=== PATIENT | female | born 1985 | race Caucasian/White ===

== ENCOUNTER → 2018-01-07 | Outpatient (CLI) | payer BC ==
--- NOTE | 2018-01-07 15:54 | Diagnostic Imaging Report ---
INDICATION: survey. TECHNIQUE: Multiple real-time grayscale images were obtained over the gravid uterus. COMPARISON: None. FINDINGS: There is a single live fetus in transverse presentation. Placenta is anterior. Amniotic fluid volume appears normal. heart rate was recorded at 146 beats per minute. Anterior placenta is somewhat low lying approximately 2 cm from the internal cervical os. survey is unremarkable demonstrating kidneys, bladder and stomach to be unremarkable. brain is unremarkable. There is a four-chamber heart. There is a three-vessel cord with normal insertion. spine is limited in evaluation due to lie. Biometrical measurements are as follows: Biparietal 4.93 cm, age 21 weeks 0 days. Head circumference 17.61 cm, age 20 weeks 1 days. Abdominal circumference 16.08 cm, age 21 weeks 2 days. Femur length 3.31 cm, age 20 weeks 3 days. Sonographic estimate age: 20 weeks 5 days. Sonographic estimated date of delivery: 05/22/18. Estimated Weight: 374 gm (+/- 55 gm). LMP percentile: 46%. heart rate: 146 beats per minute. number: 1 of 1. IMPRESSION: Single live IUP approximately 20 weeks 5 days gestational age. The estimated date of confinement sonographically is 05/22/2018. survey is unremarkable apart from spine that was limited in evaluation due to position. Followup could be performed. Dictated by: Dictated on workstation # [id number]
== END ==
LOC: RAD 14:34
PROVIDERS: ATTEND Obstetrics & Gynecology
DX: Z36.89 Encounter for other specified antenatal screening (principal); Z3A.20 20 weeks gestation of pregnancy
CPT/HCPCS: 76805

== ENCOUNTER 2018-05-13 21:36 | Inpatient (IN) | payer BC ==
[~2018-05-13] VITALS: Ht 160 cm; Wt 99.6 kg
[2018-05-13] MEDS ORDERED: D5 LR IV SOLUTION 1,000 ML IV ONE (22:00)
[2018-05-13] MEDS ORDERED: D5 LR IV SOLUTION 1,000 ML IV SCH (22:30)
[2018-05-13 22:38] LABS: BASOPHILS % (AUTO) 0 % (0-10); EOSINOPHILS # (AUTO) 0.1 10^3/uL (0.0-0.3); EOSINOPHILS % (AUTO) 1 % (0-10); HEMATOCRIT 33 % (35-52); HEMOGLOBIN 11.5 G/DL (11.5-16.0); LYMPHOCYTES # (AUTO) 2.7 X 10^3 (1.0-4.0); LYMPHOCYTES % (AUTO) 17 % (12-44); MEAN CORPUSCULAR HEMOGLOBIN 32 PG (25-34); MEAN CORPUSCULAR HGB CONC 35 G/DL (32-36); MEAN CORPUSCULAR VOLUME 90 FL (80-99); MONOCYTES # (AUTO) 1.3 X 10^3 (0.0-1.0); MONOCYTES % (AUTO) 8 % (0-12); NEUTROPHILS # (AUTO) 12.3 X 10^3 (1.8-7.8); NEUTROPHILS % (AUTO) 75 % (42-75); PLATELET COUNT 356 10^3/uL (130-400); RED BLOOD COUNT 3.63 10^6/uL (4.35-5.85); RED CELL DISTRIBUTION WIDTH 15.1 % (10.0-14.5); WHITE BLOOD COUNT 16.4 10^3/uL (4.3-11.0)
[2018-05-13] MEDS ORDERED: ONDANSETRON 4 MG/2 ML (SDV) Z0FRAN IVP PRN (23:15)
--- NOTE | 2018-05-13 23:40 | OB Labor & Delivery Record ---
L&D History Date of Service Date of Service: May 13, 2018 History Expected Date of Delivery: May 22, 2018 Gestational Age in Weeks: 38 Hx : 6 Hx Para: 3 Complications Events: Routine care Operative Indications (Cesarea: N/A-Vaginal Delivery Intrapartal Events: None L&D Stage1 Stage One Onset of Labor - Date: May 13, 2018 Monitors and Tracing Monitor Mode: External Heart Rate: 135 Monitor Accelerations: Uniform Monitor Decelerations: None Station: -2 Benefits Representative Variability: Average (6-10) Short Term Variability: Present Presentation: Vertex Rupture of Membranes Spontaneous Ruture of Membrane: No Amniotic Membrane Rupture Time: 23:30 Amniotic Membrane Fluid Desc.: Clear Vaginal Bleeding Description: Normal Show Progress/Notes Patient presented 7 cm, AROM performed with no further augmentation L&D Stage2 Stage Two Stage II Date: May 13, 2018 Monitors and Tracing Monitor Mode: External Heart Rate: 140 Monitor Accelerations: Uniform Monitor Decelerations: Variable Benefits Representative Variability: Average (6-10) Short Term Variability: Present Position: Right Occiput Anterior Presentation: Vertex Cord Descript/Complications Cord Vessel Description: 3 Vessels Delivery Type Delivery Method: Spontaneous Vaginal Anterior Shoulder: Right Episiotomy/Perineal Laceration Laceraction(s)/Extensions: No Condition of Delivery 1 minute Comment: 8 5 minute Comment: 9 Notes live male infant weight 6lbs 14 oz Condition of Condition of Infant: Living Exam: No Observed Abnormalities Resuscitation Resuscitation: N/A - Spontaneous Resp L&D Stage3 Stage Three Stage III Date: May 13, 2018 Pictocin Pitocin Administration Comment: 30 mu wide open at delivery of placenta Placenta Delivery Placenta Delivery: Spontaneous Delivery Summary Summary Estimated blood loss (mL): 250 Attending at delivery: Fiordaliza Garcia DO Condition of Delivery Examined: Cervix Examined, Uterus Explored Post Hemorrhage: No Condition of Mother stable Condition of Infant (s) stable FIORDALIZA GARCIA DO May 13, 2018 11:39 pm
[2018-05-13] MEDS ORDERED: OXYTOCIN/NORMAL SALINE 500 ML IV SCH (23:42)
--- NOTE | 2018-05-13 23:42 | History & Physical-OB ---
OB - Chief Complaint & HPI Date/Time Date of Admission: Date of Admission: May 13, 2018 at 10:30 pm Date seen by a Provider: May 13, 2018 Time Seen by a Provider: 23:30 Chief Complaint/History OB-Reason for Admission/Chief: Onset of Labor Hx : 6 Hx Para: 3 Expected Date of Delivery: May 22, 2018 Gestational Age in Weeks: 38 Gestational Age in Days: 5 Admission Nurse Assessment Rev: Yes History of Labs B pos Antibody neg RI RPR NR HBsAg NR HIV NR GC neg GBS neg Allergies and Home Medications Allergies Coded Allergies: No Known Drug Allergies (Unverified , 05/13/18) Patient Home Medication List Home Medication List Reviewed: Yes OB - History Hx of Present Care: Yes Ultrasounds: Normal mid trimester US Obstetrical Complications: None Medical Complications: None Obstetrical History Hx : 6 Hx Para: 3 Patient Past Medical History n/a Social History/Family History Recent Infectious Disease Expo: No Alcohol Use: Denies Use Recreational Drug Use: No Immunizations Date of Influenza Vaccine: Apr 13, 2018 OB - Admission Exam Physical Exam HEENT: NCAT Heart: Rhythm Normal Lungs: Clear Abdomen: Gravid Extremities: Normal Reflexes: Normal Cervical Dilatation: 7cm Effacement: 100% Station: -1 Membranes: Intact Heart Rate: 130's Accelerations: Accelerations Present Decelerations: No Decelerations Short Term Variability: Present Long-Term Variability: Average (6-25) Contractions on Admission: 6-10 Minutes Apart Intensity: Moderate Labs Laboratory Tests Test 05/13/18 22:10 Range/Units White Blood Count 16.4 H 4.3-11.0 10^3/uL Red Blood Count 3.63 L 4.35-5.85 10^6/uL Hemoglobin 11.5 11.5-16.0 G/DL Hematocrit 33 L 35-52 % Mean Corpuscular Volume 90 80-99 FL Mean Corpuscular Hemoglobin 32 25-34 PG Mean Corpuscular Hemoglobin Concent 35 32-36 G/DL Red Cell Distribution Width 15.1 H 10.0-14.5 % Platelet Count 356 130-400 10^3/uL Mean Platelet Volume 11.0 H 7.4-10.4 FL Neutrophils (%) (Auto) 75 42-75 % Lymphocytes (%) (Auto) 17 12-44 % Monocytes (%) (Auto) 8 0-12 % Eosinophils (%) (Auto) 1 0-10 % Basophils (%) (Auto) 0 0-10 % Neutrophils # (Auto) 12.3 H 1.8-7.8 X 10^3 Lymphocytes # (Auto) 2.7 1.0-4.0 X 10^3 Monocytes # (Auto) 1.3 H 0.0-1.0 X 10^3 Eosinophils # (Auto) 0.1 0.0-0.3 10^3/uL Basophils # (Auto) 0.0 0.0-0.1 10^3/uL OB - Assessment/Plan/Diagnosis Assessment Assessment: active labor Admission Dx 33 yo @ 38 weeks gestation Active labor Hx of precipitous delivery GBS neg Admission Status: Inpatient Order (span 2 midnights) Reason for Inpatient Admission: Delivery of infant, active labor Plan Plan: Expectant Management Induction Method: FIORDALIZA YUAN DO May 13, 2018 11:42 pm
--- NOTE | 2018-05-13 23:44 | Discharge Inst-Women's Service ---
Discharge Inst-Women's Serv Depart Medication/Instructions New, Converted or Re-Newed RX: RX on Chart Consults/Follow Up Additional Follow Up: Yes Orders/Referrals Dr. Garcia in 6 weeks Activity Activity: Activity as Tolerated Driving Instructions: No Driving for 1 Week NO SMOKING: NO SMOKING Nothing Inside Vagina: No Douching, No [place], No Tampons Diet Discharge Diet: No Restrictions Symptoms to Report to : Bleeding Excessive, Pain Increased, Fever Over 101 Degrees F, Vaginal Bleeding Increase, Questions/Concerns For Any Problems or Questions: Contact Your Physician FIORDALIZA GARCIA DO May 13, 2018 11:44 pm
[2018-05-13 23:45] VITALS: BP 138/88
[2018-05-13] MEDS ORDERED: FERR325T18 PO (23:45)
[2018-05-13] MEDS ORDERED: DIBUCAINE (NUPERCAINAL) 1% OINT 30 GM TOP PRN (23:45)
[2018-05-13] MEDS ORDERED: CATHETER FLUSH 10 ML SYR IV PRN (23:45)
[2018-05-13] MEDS ORDERED: MEASLES,MUMPS,RUBELLA 1 EA INJ SQ ONE (23:45)
[2018-05-13] MEDS ORDERED: WITCH HAZEL(TUCKS) 40 EA JAR TOP PRN (23:45)
[2018-05-13] MEDS ORDERED: IBUP-844 PO (23:45)
[2018-05-13] MEDS ORDERED: TETANUS,DIPTH,PERTUSS P/F (BOOSTRIX) 0.5 ML VIAL IM ONE (23:45)
[2018-05-13] MEDS ORDERED: BENZOCAINE/MENTHOL (DERMOPLAST) 56 ML CAN TP PRN (23:45)
[2018-05-13] MEDS ORDERED: HYDROcodone/APAP 5 MG/325 MG (LORTAB) TAB PO PRN (23:45)
[2018-05-13] MEDS ORDERED: DOCU100C37 PO (23:45)
[2018-05-13] MEDS ORDERED: ACHD5005 PO (23:45)
[2018-05-14] VITALS (10 sets, daily range): BP systolic 111–141; BP diastolic 62–88
[2018-05-14] MEDS ORDERED: LIDOCAINE/EPI 2% 1:200,00 (XYLOCAINE) 10 ML VIAL ONE (00:01)
[2018-05-14] MEDS ORDERED: OXYTOCIN/NORMAL SALINE 500 ML IV ONE (00:01)
[2018-05-14] MEDS: IBUPROFEN 600 MG (MOTRIN) TAB PO SCH ×4 (00:48→17:30)
[2018-05-14] MEDS ORDERED: CATHETER FLUSH 10 ML SYR IV SCH (06:00)
[2018-05-14 06:53] LABS: BASOPHILS % (AUTO) 0 % (0-10); EOSINOPHILS % (AUTO) 0 % (0-10); HEMATOCRIT 34 % (35-52); HEMOGLOBIN 11.5 G/DL (11.5-16.0); LYMPHOCYTES # (AUTO) 2.7 X 10^3 (1.0-4.0); LYMPHOCYTES % (AUTO) 14 % (12-44); MEAN CORPUSCULAR HEMOGLOBIN 31 PG (25-34); MEAN CORPUSCULAR HGB CONC 34 G/DL (32-36); MEAN CORPUSCULAR VOLUME 90 FL (80-99); MEAN PLATELET VOLUME 10.6 FL (7.4-10.4); MONOCYTES # (AUTO) 1.4 X 10^3 (0.0-1.0); MONOCYTES % (AUTO) 7 % (0-12); NEUTROPHILS # (AUTO) 15.3 X 10^3 (1.8-7.8); NEUTROPHILS % (AUTO) 79 % (42-75); PLATELET COUNT 355 10^3/uL (130-400); RED BLOOD COUNT 3.75 10^6/uL (4.35-5.85); RED CELL DISTRIBUTION WIDTH 15.4 % (10.0-14.5); WHITE BLOOD COUNT 19.4 10^3/uL (4.3-11.0)
[2018-05-14] MEDS: PRENATAL VITAMIN 1 EA TAB PO SCH (08:47)
[2018-05-14] MEDS: DOCUSATE SODIUM 100 MG (COLACE) CAP PO SCH ×2 (08:47→21:27)
[2018-05-14] MEDS: FERROUS SULF 325 MG (IRON) TAB PO SCH (08:48)
--- NOTE | 2018-05-14 11:49 | Postpartum Progress Note ---
Note Note Day # 1 Subjective: Patient is without complaints. Ambulating, voiding. Tolerating a regular diet without nausea or vomiting. Normal lochia. Pain is well controlled with oral pain medications. Objective: Vital Sign - Last 24 Hours 05/13/18 05/14/18 05/14/18 05/14/18 23:45 00:05 00:31 01:00 Temp 98.3 98.0 97.2 Pulse 80 90 82 94 B/P (MAP) 138/88 (105) 127/80 (96) 141/77 (98) 120/86 (97) 05/14/18 05/14/18 05/14/18 05/14/18 01:15 01:30 06:00 08:00 Temp 97.2 97.9 Pulse 88 74 69 73 Resp 18 18 B/P (MAP) 133/81 (98) 115/75 (88) 113/69 (84) 111/71 (84) Pulse Ox 99 O2 Delivery Room Air Physical Exam: General - Alert and oriented, no apparent distress Abdomen - Soft, appropriately tender to palpation, non-distended, fundus firm at umbilicus Extremities - no edema, negative Carlos's bilaterally Assessment: PPD 1 NVD Plan: Routine care. Encourage breast feeding. Encourage ambulation. Ferrous sulfate supplementation. Plan for discharge tomorrow Vitals - Labs Vital Signs - I&O Vital Signs Date Time Temp Pulse Resp B/P (MAP) Pulse Ox O2 Delivery O2 Flow Rate FiO2 05/14/18 08:00 97.9 73 18 111/71 (84) 99 Room Air 05/14/18 06:00 97.2 69 18 113/69 (84) 05/14/18 01:30 74 115/75 (88) 05/14/18 01:15 88 133/81 (98) 05/14/18 01:00 97.2 94 120/86 (97) 05/14/18 00:31 98.0 82 141/77 (98) 05/14/18 00:05 90 127/80 (96) 05/13/18 23:45 98.3 80 138/88 (105) Labs Laboratory Tests 05/13/18 22:10: White Blood Count 16.4H, Red Blood Count 3.63L, Hemoglobin 11.5, Hematocrit 33L , Mean Corpuscular Volume 90, Mean Corpuscular Hemoglobin 32, Mean Corpuscular Hemoglobin Concent 35, Red Cell Distribution Width 15.1H, Platelet Count 356, Mean Platelet Volume 11.0H, Neutrophils (%) (Auto) 75, Lymphocytes (%) (Auto) 17 , Monocytes (%) (Auto) 8, Eosinophils (%) (Auto) 1, Basophils (%) (Auto) 0, Neutrophils # (Auto) 12.3H, Lymphocytes # (Auto) 2.7, Monocytes # (Auto) 1.3H, Eosinophils # (Auto) 0.1, Basophils # (Auto) 0.0 05/14/18 06:36: White Blood Count 19.4H, Red Blood Count 3.75L, Hemoglobin 11.5, Hematocrit 34L , Mean Corpuscular Volume 90, Mean Corpuscular Hemoglobin 31, Mean Corpuscular Hemoglobin Concent 34, Red Cell Distribution Width 15.4H, Platelet Count 355, Mean Platelet Volume 10.6H, Neutrophils (%) (Auto) 79H, Lymphocytes (%) (Auto) 14, Monocytes (%) (Auto) 7, Eosinophils (%) (Auto) 0, Basophils (%) (Auto) 0, Neutrophils # (Auto) 15.3H, Lymphocytes # (Auto) 2.7, Monocytes # (Auto) 1.4H, Eosinophils # (Auto) 0.0, Basophils # (Auto) 0.0 FIORDALIZA GARCIA DO May 14, 2018 11:49 am
[2018-05-15 00:58] VITALS: BP 108/74
[2018-05-15] MEDS: IBUPROFEN 600 MG (MOTRIN) TAB PO SCH ×3 (00:59→12:00)
[2018-05-15 04:35] VITALS: BP 128/90
[2018-05-15 08:00] VITALS: BP 124/89
[2018-05-15] MEDS: PRENATAL VITAMIN 1 EA TAB PO SCH (08:26)
[2018-05-15] MEDS: DOCUSATE SODIUM 100 MG (COLACE) CAP PO SCH (08:26)
[2018-05-15] MEDS: FERROUS SULF 325 MG (IRON) TAB PO SCH (08:26)
--- NOTE | 2018-05-15 10:02 | Postpartum Progress Note ---
Note Note Day # 2 Subjective: Patient is without complaints. Ambulating, voiding. Tolerating a regular diet without nausea or vomiting. Normal lochia. Pain is well controlled with oral pain medications. Objective: Vital Sign - Last 24 Hours 05/14/18 05/14/18 05/14/18 05/15/18 12:00 16:00 20:00 00:58 Temp 98.5 98.2 97.8 97.2 Pulse 101 75 74 71 Resp 18 18 18 18 B/P (MAP) 123/62 (82) 130/88 (102) 121/71 (88) 108/74 (85) Pulse Ox 99 99 99 99 O2 Delivery Room Air Room Air Room Air Room Air 05/15/18 05/15/18 04:35 08:00 Temp 97.0 98.3 Pulse 62 75 Resp 18 18 B/P (MAP) 128/90 (103) 124/89 (101) Pulse Ox 99 100 O2 Delivery Room Air Room Air Physical Exam: General - Alert and oriented, no apparent distress Abdomen - Soft, appropriately tender to palpation, non-distended, fundus firm at umbilicus Extremities - no edema, negative Carlos's bilaterally Assessment: PPD 1 NVD Plan: Routine care. Encourage breast feeding. Encourage ambulation. Ferrous sulfate supplementation. Plan for discharge today Vitals - Labs Vital Signs - I&O Vital Signs Date Time Temp Pulse Resp B/P (MAP) Pulse Ox O2 Delivery O2 Flow Rate FiO2 05/15/18 08:00 98.3 75 18 124/89 (101) 100 Room Air 05/15/18 04:35 97.0 62 18 128/90 (103) 99 Room Air 05/15/18 00:58 97.2 71 18 108/74 (85) 99 Room Air 05/14/18 20:00 97.8 74 18 121/71 (88) 99 Room Air 05/14/18 16:00 98.2 75 18 130/88 (102) 99 Room Air 05/14/18 12:00 98.5 101 18 123/62 (82) 99 Room Air FIORDALIZA GARCIA DO May 15, 2018 10:02 am
--- NOTE | 2018-05-19 16:19 | Physician Query-Final Dx ---
Final Diagnosis Give Final Diagnosis Please give Final Diagnosis ISRAEL ARGUELLO May 19, 2018 16:19
== END 2018-05-15 16:05 | disposition home or self-care (01) | DRG 807 ==
LOC: WSo 21:36 → LDRP 21:36 → WSo 22:30 → LDRP 22:30 → OBSVTOIN 23:09 → LDRP 05-14 03:32
PROVIDERS: ADMIT Obstetrics & Gynecology; ATTEND Obstetrics & Gynecology
PROC: 10E0XZZ Delivery of Products of Conception, External Approach (ICD-10-PCS; principal; 2018-05-14)
DX: O80 Encounter for full-term uncomplicated delivery (principal); Z3A.38 38 weeks gestation of pregnancy; Z37.0 Single live birth
CPT/HCPCS: 36415; 85025; 86850; 86900; 86901; 90471; 99212